=== PATIENT | female | born 1945 | race Caucasian/White ===

== ENCOUNTER → 2019-02-28 | Outpatient (CLI) | payer MEDICARE, BC ==
[2019-02-28 17:29] LABS: COLLECTION METHOD CLEAN CATCH
[2019-02-28 17:48] LABS: AMORPHOUS CRYSTAL Present /uL; PH 7 (5-8); SQUAMOUS EPITHELIAL None Seen /hpf; URINE APPEARANCE Clear; URINE BACTERIA None Seen /hpf; URINE BILIRUBIN Negative (NEGATIVE); URINE BLOOD 1+ (NEGATIVE); URINE COLOR Yellow; URINE GLUCOSE Negative (NEGATIVE); URINE KETONE Negative (NEGATIVE); URINE LEUKOCYTE ESTERASE Negative (NEGATIVE); URINE NITRATE Negative (NEGATIVE); URINE PROTEIN(semi-quant) Negative (NEGATIVE); URINE UROBILINOGEN Negative (NEGATIVE)
== END ==
LOC: ZCOL.LAB 17:25
PROVIDERS: Family Medicine
DX: R31.9 Hematuria, unspecified (principal)
CPT/HCPCS: G0103

== ENCOUNTER → 2019-05-19 | Outpatient (CLI) | payer MEDICARE, BC | LOC: COL.RAD 09:06 | DX: C61 Malignant neoplasm of prostate (principal) | CPT/HCPCS: A9503 ==

== ENCOUNTER → 2019-06-19 | Outpatient (CLI) | payer MEDICARE, BC ==
[~2019-06-19] MED LIST: ASPIRIN 81M81 MG/TA2 PO; NITROSTAT0.4 MG/TAB SL; PEPCID40 MG PO; PLAVIX 75MG TAB75 MG PO; VIT B-12 PO; VITAMIN D31000 IU PO; ZOCOR 40MG40 MG PO
== END ==
LOC: COL.RAD 07:01
DX: C61 Malignant neoplasm of prostate (principal); R31.0 Gross hematuria; M89.9 Disorder of bone, unspecified

== ENCOUNTER → 2019-07-02 | Outpatient (CLI) | payer MEDICARE, BC ==
[2019-07-02] VITALS (16 sets, daily range): BP systolic 136–159; BP diastolic 76–89; PULSE 74–88
[~2019-07-02] VITALS: Ht 182.9 cm; Wt 83.8 kg
[~2019-07-02] MED LIST changes: +B-12 500 MCG PO
--- NOTE | 2019-07-02 14:00 | NUR ---
pt to ct per ambulation. Pt placed prone on ct table. Monitors applied to pt.
--- NOTE | 2019-07-02 14:20 | NUR ---
Dr Blevins into room and talks with pt regarding procedure.
--- NOTE | 2019-07-02 14:30 | NUR ---
o2 placed on pt at 2l/nc due to decreased o2 saturation. Pt sleeping at intervals encouraged to take deep breaths.
--- NOTE | 2019-07-02 14:55 | NUR ---
Specimens obtained by Dr Blevins and placed in formalin. Specimen labeled.
== END ==
LOC: COL.RAD 12:16
DX: C61 Malignant neoplasm of prostate (principal); R31.0 Gross hematuria; M89.9 Disorder of bone, unspecified
CPT/HCPCS: J2250; J3010

== ENCOUNTER → 2020-12-31 | Outpatient (CLI) | payer MEDICARE, BC | LOC: COL.RAD 09:45 | DX: C61 Malignant neoplasm of prostate (principal) | CPT/HCPCS: A9503 ==